=== PATIENT | male | born 1970 | race Caucasian/White ===

== ENCOUNTER 2018-07-03 07:04 | Day surgery (SDC) | payer BC ==
--- NOTE | 2018-06-29 06:52 | HP ---
HISTORY AND PHYSICAL: DATE OF PLANNED ADMISSION AND SURGERY: 07/03/18 HISTORY OF PRESENT ILLNESS: Mr. Augustin is a 47-year-old white male who is admitted with chronic left epididymal pain for left scrotal exploration and left epididymectomy. Mr. Augustin had bilateral vasectomy in 1997. About 9 months ago, he started having left scrotal discomfort. The condition initially improved spontaneously , but recurred 5 months ago. Since that time, it has been persistent with some exacerbations. The pain originates in the left epididymis and radiates to the left inguinal area. It is exacerbated by lifting and straining, walking, driving, and sitting for long time and also with crossing his legs. It improves when he lies on the recliner with his legs elevated. He did not notice any changes in his voiding. The patient had a scrotal ultrasound, which showed a small left varicocele, but no other abnormalities. The testes look normal without any testicular masses. There was no inguinal hernia noted.He was tried on courses of Naprosyn, doxycycline and gabapentin, with no improvement. He was then tried on a 2 months' course of Celebrex, with only minimal improvement in his symptoms. When I first evaluated him in my office about 2-1/2 months ago, the positive finding was a tender globus major of the left epididymis, which seemed to be the source of his pain. The patient has continued to be markedly symptomatic, unable to exercise and unable to walk for moderate distances. The condition has been significantly interfering with his quality of life. PAST MEDICAL HISTORY AND SYSTEM REVIEW: The patient is in very good health. He has mild hypertension, maintained on lisinopril 5 mg daily. He has history of gout, on allopurinol 200 mg daily. ALLERGIES: He reports being allergic to TORADOL, which gives him hives and also to PENICILLIN, which gives him hives. He had tolerated ibuprofen and Naprosyn without any side effects. PHYSICAL EXAMINATION GENERAL: He is moderately overweight, otherwise healthy looking white male. VITAL SIGNS: Blood pressure 140/90, pulse of 80. LUNGS AND HEART: Exam of the heart and lungs is normal. ABDOMEN: Exam is normal. No CVA tenderness. EXTERNAL GENITALIA: He is circumcised. No penile lesions. Both testes feel normal in size and consistency. No testicular masses and no testicular tenderness. There is a grade 2 left varicocele. There is a prominent and tender globus major of the left epididymis, which is the source of the inguinal and scrotal pain he has been having. No inguinal hernia is noted. RECTAL: Exam showed a non-enlarged and non-suspicious prostate. IMPRESSION: Chronic postvasectomy left epididymal pain, not responding to antibiotics, anti-inflammatories, and gabapentin. PLAN: I had a long discussion with the patient and his regarding the options of management of his condition. Those included continued medical management with various antiinflammatories. The surgical options include vasectomy reversal, denervation of the spermatic cord, and left epididymectomy. I discussed the pros and cons of each one of those modes of surgical management and the patient wants to proceed with the left epididymectomy. Some of potential complications including infection and hematoma and persistent pain were discussed. All their questions were answered. [id number] #: [id number] [place]
[~2018-07-03 07:04] MED LIST: Buffered Lidocaine 1% SYRIN* 1 ML/SYRINGE INTRADERM ONE; Lactated Ringers 1000 ML Bag* 1,000 ML IV SCH
[2018-07-03] MEDS ORDERED: Buffered Lidocaine 1% SYRIN* 1 ML/SYRINGE INTRADERM ONE (07:45)
[2018-07-03] MEDS ORDERED: fentaNYL* 50 MCG/ML 2 ML VIAL (100 MCG VIAL) ONE (08:20)
[2018-07-03] MEDS ORDERED: Midazolam* 1 MG/ML 2 ML VIAL (2 MG) ONE (08:20)
[2018-07-03] MEDS ORDERED: Bupivacaine 0.5%* 50 ML VIAL ONE (08:43)
[2018-07-03] MEDS ORDERED: Dexamethasone IV* 4 MG/ML 1 ML (4 MG) ONE ×2 (08:56→10:17)
[2018-07-03] MEDS ORDERED: Ondansetron INJ* 2 MG/ML VIAL ONE ×2 (08:56→10:17)
[2018-07-03] MEDS ORDERED: Lidocaine 2% PF * 5 ML VIAL ONE ×2 (08:56→10:17)
[2018-07-03] MEDS ORDERED: Propofol* 10 MG/ML 20 ML BTL ONE ×2 (08:56→10:17)
[2018-07-03] MEDS ORDERED: HYDROmorphone INJ1* 1 MG/ML SYRINGE IV PRN (09:34)
[2018-07-03] MEDS ORDERED: Acetaminophen TAB* 325 MG PO PRN (09:34)
[2018-07-03] MEDS ORDERED: Ibuprofen TAB* 600 MG PO PRN (09:34)
[2018-07-03] MEDS ORDERED: Naloxone* 0.4 MG/ML 1 ML VIAL IV PRN (09:34)
[2018-07-03] MEDS ORDERED: Ibuprofen TAB* 600 MG ONE (10:15)
[2018-07-03] MEDS ORDERED: Glycopyrrolate IV* 0.2 MG/ML 1 ML VIAL ONE (10:24)
[2018-07-03 10:55] VITALS: BP 144/91
--- NOTE | 2018-07-03 11:53 | OP ---
OPERATIVE REPORT: DATE OF OPERATION: 07/03/18 DATE OF : 66 SURGEON: Benedict Badillo MD ANESTHESIOLOGIST: Dr. German. ANESTHESIA: General. PRE-OP DIAGNOSES: 1. Chronic left epididymal pain. 2. Left epididymal granuloma. POST-OP DIAGNOSES: 1. Chronic left epididymal pain. 2. Left epididymal granuloma. OPERATIVE PROCEDURE: 1. Left scrotal exploration. 2. Left epididymectomy. INDICATIONS FOR PROCEDURE: Mr. Augustin is a 47-year-old white male who had undergone bilateral vasectomy 20 years ago. Over the last year, he had recurrent and then persistent left scrotal pain which on physical exam was originating from a tender nodule in the globus major of the left epididymis. He was tried on various medical treatments including antibiotics, Naprosyn, gabapentin, 2 months course of Celebrex, with no improvement. The condition has become significantly bothersome interfering with his daily activities. Scrotal ultrasound was normal. Physical examination showed a tender nodule in the globus major of the left epididymis which seems to be the origin of his pain. After discussing the various options of management, left epididymectomy was advised and accepted. PATHOLOGY: Upon left scrotal exploration the testicle looked and felt normal. There were no testicular masses noted. There was no varicocele or hydrocele noted. A nodule was felt in the globus major of the epididymis. DESCRIPTION OF PROCEDURE: After successful general anesthesia, patient was placed in the supine position and was prepped and draped for scrotal surgery. A transverse incision was carried in the left anterior hemiscrotal skin and was deepened through the dartos muscle. The tunica vaginitis was opened and the testicle was delivered through the incision. The testis and epididymis were carefully inspected and the pathology in the epididymis was noted. The globus major was then grabbed with Marion clamp. Using the cautery, the epididymis was dissected from the underlying tunica albuginea and the dissection was carried all the way to the globus minor and then to the vas deferens. The epididymal vessels were controlled with either cautery or with a 4-0 Vicryl ties. The tunica albuginea was not opened. The epididymis and the a portion of the vas deferens were then excised and sent for pathology. The bleeders were all electrocoagulated or ligated and well controlled achieving good hemostasis. The area where the epididymis was adherent to the testis was then closed using running suture of 4-0 chromic. After making sure there was very good hemostasis, the testis was replaced in the scrotal cavity, and was irrigated with saline. The tunica vaginalis was closed using 4-0 chromic sutures. A total of 8 cc of 0.5% Marcaine without epinephrine were used to infiltrate the incision for postoperative analgesia. The dartos muscle was closed using running suture of 4-0 Vicryl. The skin was closed with interrupted everting sutures of 4-0 chromic. The patient tolerated the procedure well and left the operating room in good condition. There was no blood loss. The specimen was left epididymis and portion of vas. All the counts were correct. [id number]/[facility] #: [id number] [place]
== END 2018-07-03 10:56 | disposition home or self-care (01) ==
LOC: OR 07:04
PROVIDERS: ATTEND Urology
DX: N45.1 Epididymitis (principal); N50.82 Scrotal pain; I10 Essential (primary) hypertension; E66.9 Obesity, unspecified
CPT/HCPCS: 88304; A9270-GY; J1100; J2250; J2405; J2704; J3010